=== PATIENT | male | born 1965 | race Caucasian/White ===

== ENCOUNTER 2020-07-07 12:05 | Emergency (ER) | payer MEDICARE, SELFPAY ==
[2020-07-07 12:14] VITALS: BP 108/74; PULSE 74; RESP 17; TEMP 36.6; O2SAT 97
--- NOTE | 2020-07-07 12:18 | ECG_ITS ---
Measurements Intervals [place] Rate: 72 P: 72 VT: 148 QRS: 74 QRSD: 85 T: 74 QT: 390 QTc: 429 Interpretive Statements SINUS RHYTHM NORMAL ECG Electronically Signed On 07-07-2020 12:26:22 CDT by Jason Martinez D.O.
[2020-07-07 12:32] LABS: Basophils Absolute Auto 0.1 K/mm3 (0.0-0.1); Basophils Percent Auto 0.7 % (0.2-1.2); Eosinophils Absolute Auto 0.6 K/mm3 (0-0.3); Eosinophils Percent Auto 4.9 % (0-4.4); Hematocrit 42.1 % (42.0-52.0); Hemoglobin 14.9 g/dL (14.0-18.0); Immature Granulocyte Absolute 0.06 K/mm3 (0.00-0.031); Immature Granulocyte Percent A 0.5 % (0-0.5); Lymphocytes Absolute Auto 1.43 K/mm3 (0.9-3.2); Lymphocytes Percent Auto 12.6 % (18.3-44.2); Mean Corpuscular HGB Conc 35.4 g/dl (32-36); Mean Corpuscular Hemoglobin 33.4 pg (26-34); Mean Corpuscular Volume 94.4 fl (80-100); Mean Platelet Volume 8.7 fl (7.4-10.4); Monocytes Absolute Auto 0.8 K/mm3 (0.1-0.6); Monocytes Percent Auto 7.2 % (2.6-8.5); Neutrophils Absolute Auto 8.4 K/mm3 (1.3-6.7); Neutrophils Percent Auto 74.1 % (45.5-73.1); Platelet Count Result 242 k/mm3 (150-375); Red Blood Count 4.46 M/mm3 (4.6-6.20); Red Cell Distribution Width 13.7 % (11.5-14.5); White Blood Count 11.4 K/mm3 (4.5-10.0)
[2020-07-07 12:49] LABS: Alanine Aminotransferase 19 U/L (4-50); Alkaline Phosphatase 77 U/L (38-126); Anion Gap 11 mmol/L (8-16); Aspartate Amino Transferase 29 U/L (17-59); Bilirubin,Total 0.5 mg/dL (0.2-1.3); Blood Urea Nitrogen 5 mg/dL (9-20); Calcium 8.6 mg/dL (8.4-10.2); Carbon Dioxide 22 mmol/L (22-30); Chloride 99 mmol/L (98-107); Estimated CRCL calculation 141 ml/min; Estimated Glomerular Filt Rate > 60; Glucose 93 mg/dL (75-110); Potassium 4.5 mmol/L (3.4-5.0); Sodium 132 mmol/L (137-145)
== END 2020-07-07 13:14 | disposition left against medical advice (07) ==
LOC: ANHED 13:08
PROVIDERS: Emergency Provider Emergency Medicine; PCP Psychiatry & Neurology Neurology
DX: R25.1 Tremor, unspecified (principal)
CPT/HCPCS: 36415; 80053; 85025; 93005; 99199

== ENCOUNTER 2021-08-01 12:22 | Outpatient (CLI) | payer MEDICARE, SELFPAY ==
--- NOTE | ~2021-08-01 | MR_ITS ---
EXAMINATION: MR brain IAC wo con DATE: 08/01/2021 13:21 INDICATION: Benign neoplasm of cranial nerves. Headache. TECHNIQUE: Magnetic resonance imaging (MRI) of the brain, brainstem, and internal auditory canals was performed without intravenous contrast. Sequences included sagittal and axial T1-weighted FSE, axial diffusion-weighted FS EPI, axial T2*-weighted GRE, axial T2-weighted FLAIR Propeller, axial T2-weigh [place] Propeller, small [id number] coronal FIESTA, small elwfk-hd-abgy coronal T1-weighted FSE, and s mall [id number] axial T1-weighted SPGR. Apparent diffusion coefficient (ADC) maps were created. COMPARISON: Brain MRI 05/12/2018, head CTA 08/01/2021 FINDINGS: There are changes of right-sided craniotomy. There is chronic encephalomalacia involving in ferior right frontal lobe, the right side of optic chiasm, and right optic nerve. There is a mass inv olving the medial aspect of anterior right temporal lobe measuring 4.0 x 1.8 cm, worsened from 3.0 x 1.9 cm on 05/12/18. The mass demonstrates heterogeneous T1 and T2 weighted signal intensity with areas of diffusion restriction. There is no acute ischemic infarct or intracranial hemorrhage. The ventricl es are normal in size. There is mucosal thickening in the paranasal sinuses. The orbits are normal. T he internal auditory canals and inner ears are normal. There is a small right mastoid effusion. There are changes of left mastoidectomy. IMPRESSION: 1. Mass involving medial aspect of anterior right temporal lobe, worsened from 05/12/2018. The differen tial diagnosis includes dermoid and glioma. Correlate with surgical history. 2. Chronic encephalomalacia involving inferior right frontal lobe, right side of optic chiasm, and ri ght optic nerve. Reviewed, dictated and finalized at location A. IMPRESSION: 1. Mass involving medial aspect of anterior right temporal lobe, worsened from 05/12/2018. The differential diagnosis includes dermoid and glioma. Correlate wit h surgical history. 2. Chronic encephalomalacia involving inferior right frontal lobe, right side o f optic chiasm, and right optic nerve.
--- NOTE | ~2021-08-01 | CT_ITS ---
EXAMINATION: CTA brain DATE: 08/01/2021 13:45 INDICATION: Benign neoplasm of cranial nerves. TECHNIQUE: Computed tomographic angiography (CTA) of the head was performed without and with 100 mL O mnipaque-350 intravenous contrast. Automated exposure control and iterative reconstruction technique were employed. The dose-length product was 1012.78 mGy-cm. Maximum intensity projection 3D reconstru ctions were created. Volume-rendered 3D reconstructions of the intracranial arteries were created by the technologist on a separate workstation. COMPARISON: Brain MRI 08/01/2021, 05/12/2018 FINDINGS: There is chronic encephalomalacia in inferior right frontal lobe. There is a mass of mixed increased and decreased attenuation relative to reeves matter and with foci of calcification involving the medial aspect of anterior right temporal lobe measuring 4.0 x 1.8 cm. There is no intracranial he morrhage or acute ischemic infarct. The ventricles are normal in size. There is mucosal thickening in the paranasal sinuses. The orbits are normal. There are changes of left mastoidectomy. There is a sm all right mastoid effusion. The vertebral arteries are codominant. There is no significant stenosis o f basilar artery or the posterior cerebral arteries. Left posterior communicating artery is normal. A right posterior communicating artery is not identified. There is no significant stenosis of the intr acranial internal carotid arteries or anterior or middle cerebral arteries. Anterior communicating ar ken is normal. There is no aneurysm. There are changes of right-sided craniotomy. IMPRESSION: 1. Mass involving the medial aspect of anterior right temporal lobe. The differential diagnosis inclu john dermoid and glioma. Correlate with surgical history. 2. Chronic encephalomalacia involving inferior right frontal lobe. 3. No aneurysm or significant intracranial arterial stenosis. Reviewed, dictated and finalized at location A. IMPRESSION: 1. Mass involving the medial aspect of anterior right temporal lobe. The differ ential diagnosis includes dermoid and glioma. Correlate with surgical history. 2. Chronic encephalomalacia involving inferior right frontal lobe. 3. No aneurysm or significant intracranial arterial stenosis.
== END 2021-08-01 12:23 | disposition home or self-care (01) ==
PROVIDERS: PCP Psychiatry & Neurology Neurology; Visit Provider Psychiatry & Neurology Neurology
DX: D33.3 Benign neoplasm of cranial nerves (principal); G93.89 Other specified disorders of brain
CPT/HCPCS: 70496; 70551; Q9967

== ENCOUNTER 2022-01-09 06:52 | Outpatient (CLI) | payer MEDICARE, SELFPAY ==
--- NOTE | ~2022-01-09 | MR_ITS ---
EXAMINATION: MR lumbar spine wo con DATE: 01/09/2022 08:23 INDICATION: Lumbar radiculopathy. TECHNIQUE: Magnetic resonance imaging (MRI) of the lumbar spine was performed without intravenous con trast. Sequences included sagittal T2-weighted FSE, sagittal T2-weighted FS FSE, sagittal T1-weighted FSE, and axial T2-weighted FSE. COMPARISON: None FINDINGS: There is 6 degrees dextrocurvature of thoracolumbar spine. There are chronic bilateral L5 p ars defects. There is 3 mm anterolisthesis of L5 on S1. There is mild chronic anterior wedging of T12 and L1 vertebral bodies. There is mildly decreased disc height at L1-L2 and L5-S1. The distal spinal cord signal intensity is normal. The conus medullaris is at T12-L1. The following disc levels are sp ecifically discussed: L1-L2: The disc is bulging. There is mild bilateral facet joint osteoarthritis. There is mild bilater al neural foraminal stenosis. There is mild central canal stenosis. L2-L3: The disc is mildly bulging. There is mild bilateral facet joint osteoarthritis. There is mild bilateral neural foraminal stenosis. There is no central canal stenosis. L3-L4: The disc is bulging and has an annular fissure. There is mild bilateral facet joint osteoarthr itis. There is mild right and moderate left neural foraminal stenosis. There is no central canal sten osis. L4-L5: The disc is bulging. There is severe right and mild left facet joint osteoarthritis. There is moderate bilateral neural foraminal stenosis. There is no central canal stenosis. L5-S1: The disc is bulging and has an in their fissure. There is moderate bilateral facet joint osteo arthritis. There is mild bilateral neural foraminal stenosis. There is mild central canal stenosis. IMPRESSION: 1. Moderate lumbar spondylosis. 2. Chronic bilateral L5 pars defects with grade 1 anterolisthesis of L5 on S1. Reviewed, dictated and finalized at location A. RNAL AUDIT MANAGER
--- NOTE | ~2022-01-09 | MR_ITS ---
EXAMINATION: MR cervical spine wo con EXAM DATE: 01/09/2022 08:23 INDICATION: Cervical radiculopathy. TECHNIQUE: Multi-sequential, multiplanar MR images of the cervical spine were obtained without contra st. Axial T2, axial T2 MERGE sequence. Sagittal T1, T2, T2 fat saturation images also obtained. Th ere is no prior study for comparison. FINDINGS: There is mild disc disease C5-6 and C6-7. The spinal cord signal intensity and intrinsic m orphology is normal. Cervicomedullary junction is normal in appearance. There are no suspicious marro w signal abnormalities. Paraspinal soft tissue is unremarkable. Level by level evaluation: C2-C3: Disc does not extend beyond the endplate margin. Uncovertebral joint arthropathy: None. Facet joint arthropathy: Mild to moderate bilateral. Neural foraminal stenosis: No stenosis. Central canal stenosis: No stenosis. C3-C4: Disc does not extend beyond the endplate margin. Uncovertebral joint arthropathy: Mild bilateral. Facet joint arthropathy: Moderate bilateral. Neural foraminal stenosis: No stenosis. Central canal stenosis: No stenosis. C4-C5: Disc does not extend beyond the endplate margin. Uncovertebral joint arthropathy: Mild bilateral. Facet joint arthropathy: Moderate bilateral. Neural foraminal stenosis: Mild bilateral. Central canal stenosis: No stenosis. C5-C6: There is a mild diffuse disc bulge. Uncovertebral joint arthropathy: Mild to moderate bilateral. Facet joint arthropathy: Moderate left, mild to moderate right. Neural foraminal stenosis: Mild to moderate bilateral. Central canal stenosis: No stenosis. C6-C7: There is a mild diffuse disc bulge. Small left central protrusion. Uncovertebral joint arthropathy: Moderate left, mild to moderate right. Facet joint arthropathy: Mild to moderate bilateral. Neural foraminal stenosis: Mild right. Central canal stenosis: Mild. C7-T1: Disc does not extend beyond the endplate margin. Uncovertebral joint arthropathy: Moderate left, mild to moderate right. Facet joint arthropathy: Moderate left, mild to moderate right. Neural foraminal stenosis: Mild to moderate left, mild right. Central canal stenosis: No stenosis. IMPRESSION: 1. Mild to moderate cervical spondylosis. Reviewed, dictated and finalized at location B. TIONS ANALYST
== END 2022-01-09 06:53 | disposition home or self-care (01) ==
PROVIDERS: Visit Provider Pain Medicine Interventional Pain Medicine
DX: M54.17 Radiculopathy, lumbosacral region (principal); M54.12 Radiculopathy, cervical region; M47.816 Spondylosis without myelopathy or radiculopathy, lumbar region; M43.16 Spondylolisthesis, lumbar region; M47.812 Spondylosis without myelopathy or radiculopathy, cervical region
CPT/HCPCS: 72141; 72148

== ENCOUNTER 2022-02-07 15:29 | Outpatient (CLI) | payer MEDICARE, SELFPAY ==
--- NOTE | ~2022-02-07 | MR_ITS ---
EXAMINATION: MR orbits face neck wo con DATE: 02/07/2022 16:59 INDICATION: Benign neoplasm of peripheral nerves. TECHNIQUE: Magnetic resonance imaging (MRI) of the orbits was performed without intravenous contrast. Sequences included sagittal and axial T1-weighted FSE, axial diffusion-weighted FS EPI, axial T2*-we ighted GRE, axial T2-weighted FLAIR Propeller, and axial T2-weighted Propeller. Apparent diffusion co efficient (ADC) maps were created. Sequences of the orbits included coronal, sagittal, and axial T2-w eighted FS FSE and T1-weighted FSE. The patient refused contrast. COMPARISON: Brain MRI 08/01/2021 FINDINGS: There is chronic encephalomalacia involving the inferior right frontal lobe. There is a mas s involving the medial aspect of anterior right temporal lobe measuring 3.8 x 2.0 x 1.7 cm. The mass involves the right side of the optic chiasm, which is enlarged. The mass demonstrates heterogeneous T 1- and T2-weighted signal intensity with areas of diffusion restriction. There are scattered areas of nonspecific increased T2-weighted signal intensity in the cerebral white matter, which is within nor mal limits for the patient's age. There is no acute ischemic infarct or intracranial hemorrhage. The ventricles are normal in size. There is mucosal thickening in the paranasal sinuses. The extraocular muscles and ocular globes are normal. There is a small right mastoid effusion. IMPRESSION: 1. 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 Correlate with surgical history. 2. Chronic encephalomalacia involving inferior right frontal lobe. Reviewed, dictated and finalized at location A. IMPRESSION: 1. 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 Correlate with surgical history. 2. Chronic encephalomalacia involving inferior right frontal lobe.
== END 2022-02-07 15:30 | disposition home or self-care (01) ==
LOC: ANHIMG 15:40
PROVIDERS: PCP Internal Medicine; Visit Provider Nurse Practitioner
DX: D36.10 Benign neoplasm of peripheral nerves and autonomic nervous system, unspecified (principal); G93.89 Other specified disorders of brain
CPT/HCPCS: 70540